=== PATIENT | male | born 1975 | race Two or more races ===

== ENCOUNTER 2020-01-15 18:42 | Emergency (ER) | payer SELFPAY ==
[~2020-01-15] VITALS: Ht 175.3 cm; Wt 100.0 kg
--- NOTE | 2020-01-15 19:41 | PHYS DOC ---
Past Medical History Past Medical History: Anxiety, Other Additional Past Medical Histor: anaphalaxsis Past Surgical History: No Surgical History Smoking Status: Light Tobacco Smoker Alcohol Use: Rarely Drug Use: None Adult General Chief Complaint Chief Complaint: DIZZY/LIGHT HEADED HPI HPI Patient is a 44 year old male with a past medical history of anxiety depression GERD hyperlipidemia and insomnia resents with the chief complaint of dizziness diarrhea and nausea and vomiting associated with abdominal pain. Patient states symptoms initially started around 1100hrs-- state did abdominal pain was initially diffuse than localized to the left upper quadrant. Patient states that today he's had multiple episodes of diarrhea and vomiting. Patient states he tried to use Pepto-Bismol with no relief. Patient also complains of dizziness worse with movement. Review of Systems Review of Systems Constitutional: Denies fever or chills [] Eyes: Denies change in visual acuity, redness, or eye pain [] HENT: Denies nasal congestion or sore throat [] Respiratory: Denies cough or shortness of breath [] Cardiovascular: No additional information not addressed in HPI [] GI: No abdominal pain positive nausea positive vomiting positive diarrhea : Denies dysuria or hematuria [] Musculoskeletal: Denies back pain or joint pain [] Integument: Denies rash or skin lesions [] Neurologic: Denies, focal weakness or sensory changes [positive headache] Endocrine: Denies polyuria or polydipsia [] All other systems were reviewed and found to be within normal limits, except as documented in this note. Current Medications Current Medications Current Medications Medications (Trade) Dose Ordered [facility] Start Time Stop Time Status Last Admin Dose Admin Ketorolac Tromethamine (Toradol 30mg Vial) 30 mg 1X ONCE 01/15/20 20:30 01/15/20 20:31 DC 01/15/20 20:56 30 MG Ondansetron HCl (Zofran) 4 mg 1X ONCE 01/15/20 19:45 01/15/20 19:46 DC 01/15/20 19:51 4 MG Sodium Chloride 1,000 ml @ 1,000 mls/hr 1X ONCE 01/15/20 20:30 01/15/20 21:29 01/15/20 20:56 1,000 MLS/HR Allergies Allergies Allergies Coded Allergies Type Severity Reaction Last Updated Verified No Known Drug Allergies 07/31/14 No Physical Exam Physical Exam Constitutional: Well developed, well nourished, no acute distress, non-toxic appearance. [] HENT: Normocephalic, atraumatic, bilateral external ears normal, oropharynx moist, no oral exudates, nose normal. [] Eyes: PERRLA, EOMI, conjunctiva normal, no discharge. [] Neck: Normal range of motion, no tenderness, supple, no stridor. [] Cardiovascular:Heart rate regular rhythm, no murmur [] Lungs & Thorax: Bilateral breath sounds clear to auscultation [] Abdomen: Bowel sounds normal, soft, no tenderness, no masses, no pulsatile masses. [] Skin: Warm, dry, no erythema, no rash. [] Back: No tenderness, no CVA tenderness. [] Extremities: No tenderness, no cyanosis, no clubbing, ROM intact, no edema. [] Neurologic: Alert and oriented X 3, normal motor function, normal sensory function, no focal deficits noted. [] Psychologic: Affect normal, judgement normal, mood normal. [] Current Patient Data Vital Signs Vital Signs Date Time Temp Pulse Resp B/P (MAP) Pulse Ox O2 Delivery O2 Flow Rate FiO2 01/15/20 19:37 97.8 114 16 132/97 (109) 95 Room Air 97.8 Lab Values Laboratory Tests Test 01/15/20 19:40 White Blood Count 10.2 x10^3/uL (4.0-11.0) Red Blood Count 5.73 x10^6/uL (4.30-5.70) H Hemoglobin 16.9 g/dL (13.0-17.5) Hematocrit 49.1 % (39.0-53.0) Mean Corpuscular Volume 86 fL (79-100) Mean Corpuscular Hemoglobin 30 pg (25-35) Mean Corpuscular Hemoglobin Concent 34 g/dL (31-37) Red Cell Distribution Width 13.1 % (11.5-14.5) Platelet Count 332 x10^3/uL (140-400) Neutrophils (%) (Auto) 90 % (31-73) H Lymphocytes (%) (Auto) 5 % (24-48) L Monocytes (%) (Auto) 4 % (0-9) Eosinophils (%) (Auto) 0 % (0-3) Basophils (%) (Auto) 0 % (0-3) Neutrophils # (Auto) 9.2 x10^3/uL (1.8-7.7) H Lymphocytes # (Auto) 0.6 x10^3/uL (1.0-4.8) L Monocytes # (Auto) 0.4 x10^3/uL (0.0-1.1) Eosinophils # (Auto) 0.0 x10^3/uL (0.0-0.7) Basophils # (Auto) 0.0 x10^3/uL (0.0-0.2) Segmented Neutrophils % 95 % (35-66) H Lymphocytes % 3 % (24-48) L Monocytes % 2 % (0-10) Platelet Estimate Adequate (ADEQUATE) Sodium Level 136 mmol/L (136-145) Potassium Level 4.0 mmol/L (3.5-5.1) Chloride Level 101 mmol/L (98-107) Carbon Dioxide Level 20 mmol/L (21-32) L Anion Gap 15 (6-14) H Blood Urea Nitrogen 19 mg/dL (8-26) Creatinine 1.2 mg/dL (0.7-1.3) Estimated GFR (Cockcroft-Gault) 65.2 BUN/Creatinine Ratio 16 (6-20) Glucose Level 125 mg/dL (70-99) H Calcium Level 9.5 mg/dL (8.5-10.1) Total Bilirubin 0.5 mg/dL (0.2-1.0) Aspartate Amino Transferase (AST) 14 U/L (15-37) L Alanine Aminotransferase (ALT) 23 U/L (16-63) Alkaline Phosphatase 140 U/L (46-116) H Troponin I Quantitative < 0.017 ng/mL (0.000-0.055) Total Protein 7.8 g/dL (6.4-8.2) Albumin 4.5 g/dL (3.4-5.0) Albumin/Globulin Ratio 1.4 (1.0-1.7) Lipase 190 U/L (73-393) Laboratory Tests 01/15/20 19:40 Laboratory Tests 01/15/20 19:40 EKG EKG [] Interpretation Time: EKG time 1958 Sinus tachycardia rate of [address] no ST depression no acute IN Radiology/Procedures Radiology/Procedures [] Course & Med Decision Making Course & Med Decision Making Pertinent Labs and Imaging studies reviewed. (See chart for details) []Results reviewed and discussed with patient and family. Treatment with Zofran, Toradol, and NS. Patient improved post treatment. Patient was discharged home with Rx zofran. Patient advised to follow up with PCP. Alexander Disclaimer Alexander Disclaimer This electronic medical record was generated, in whole or in part, using a voice recognition dictation system. Departure Departure Impression: Primary Impression: Gastroenteritis Disposition: 01 HOME, SELF-CARE Condition: STABLE Referrals: NO PCP (PCP) Patient Instructions: Viral Gastroenteritis Scripts Ondansetron Hcl (ZOFRAN) 4 Mg Tablet 1 TAB PO Q6HRS, #14 TAB Prov: JOSELIN MARTÍNEZ I DO 01/15/20 JOSELIN MARTÍNEZ I DO Jan 15, 2020 19:41
[2020-01-15] MEDS: ONDANSETRON PF 4 MG/2 ML VIAL. IVP ONE (19:51)
[2020-01-15] MEDS: IV NORMAL SALINE 1000ML BAG 1,000 ML IV ONE ×2 (19:51→20:56)
[2020-01-15 19:52] LABS: BASO % 0 % (0-3); EOS % 0 % (0-3); HEMATOCRIT 49.1 % (39.0-53.0); HEMOGLOBIN 16.9 g/dL (13.0-17.5); LYMPH # 0.6 x10^3/uL (1.0-4.8); LYMPH % 5 % (24-48); MEAN CORPUSCULAR HEMOGLOBIN 30 pg (25-35); MEAN CORPUSCULAR HGB CONC 34 g/dL (31-37); MEAN CORPUSCULAR VOLUME 86 fL (79-100); MONO # 0.4 x10^3/uL (0.0-1.1); MONO % 4 % (0-9); NEUT # 9.2 x10^3/uL (1.8-7.7); NEUT % 90 % (31-73); PLATELET COUNT 332 x10^3/uL (140-400); RED BLOOD COUNT 5.73 x10^6/uL (4.30-5.70); RED CELL DISTRIBUTION WIDTH 13.1 % (11.5-14.5); WHITE BLOOD COUNT 10.2 x10^3/uL (4.0-11.0)
[2020-01-15 20:03] LABS: CALCIUM 9.5 mg/dL (8.5-10.1); CREATININE 1.2 mg/dL (0.7-1.3); GFR 65.2
[2020-01-15 20:09] LABS: ALBUMIN 4.5 g/dL (3.4-5.0); ALBUMIN/GLOBULIN RATIO 1.4 (1.0-1.7); TOTAL BILIRUBIN 0.5 mg/dL (0.2-1.0); TOTAL PROTEIN 7.8 g/dL (6.4-8.2)
[2020-01-15 20:18] LABS: % LYMPHS 3 % (24-48); % MONOS 2 % (0-10); % SEGS 95 % (35-66); PLT ESTIMATE ADEQUATE (ADEQUATE)
[2020-01-15] MEDS: KETOROLAC 30 MG/ML VIAL. IVP ONE (20:56)
[2020-01-15] MEDS ORDERED: ONDA4TAB7 PO (21:15)
[2020-01-15 21:31] VITALS: BP 111/59
--- NOTE | 2020-01-16 05:21 | EKG ---
[facility] [address] [place] [address] Test Date: 2020-01-15 Test Time: 19:59:05 Pat Name: VIDA MCNEIL Department: Room: Gender: M [employer]: : 1975 Requested By: JOSELIN MARTÍNEZ Order Number: [id number] Reading MD: Measurements Intervals [place] Rate: 103 P: 48 ND: 146 QRS: -30 QRSD: 90 T: 42 QT: 310 QTc: 408 Interpretive Statements SINUS TACHYCARDIA ABNORMAL LEFT AXIS DEVIATION LEFT ANTERIOR FASCICULAR BLOCK QRS(T) CONTOUR ABNORMALITY CONSIDER ANTEROSEPTAL MYOCARDIAL DAMAGE ABNORMAL ECG RI6.01 No previous ECG available for comparison
== END 2020-01-15 22:00 | disposition home or self-care (01) ==
LOC: ER 18:42
DX: K52.9 Noninfective gastroenteritis and colitis, unspecified (principal); Z72.0 Tobacco use
CPT/HCPCS: 36415; 80053; 83690; 84484; 85007; 85025; 93005; 96361; 96374; 96375; 99285; J1885; J2405; J7030